=== PATIENT | male | born 1990 | race Asian ===

== ENCOUNTER 2021-07-31 10:39 | Emergency (ER) | payer BC ==
[~2021-07-31] VITALS: Ht 177.8 cm; Wt 101.6 kg
--- NOTE | 2021-07-31 10:51 | NUR ---
dr johnson at bedside for eval.
[2021-07-31] MEDS ORDERED: LORAZEPAM INJ 2 MG/ML VIAL IV ONE (11:00)
--- NOTE | 2021-07-31 11:00 | NUR ---
iv line started blood drawn. 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
[2021-07-31] MEDS ORDERED: LORAZEPAM INJ 2 MG/ML VIAL ONE (11:01)
--- NOTE | 2021-07-31 11:04 | NUR ---
pt ambulatory to er bed 11 c/o chest discomfort, feeling "sick" s/p shooting methampetamine this morning at around 3am. pt states symptoms got worst at aroun 0600 so decided that he go to the urgent care. pt was given aspirin 325 po prior to being ask to go to ED for further eval. pt is aaox4. denies si/hi. gowned and placed on monitor. sinus tach and hypertensive. awaiting md yoanna.
[2021-07-31 11:15] LABS: BASOPHILS % (AUTO) 0.3 % (0.0-2.0); EOSINOPHILS % (AUTO) 0.3 % (0.0-6.0); HEMATOCRIT 51 % (39-51); HEMOGLOBIN 17.1 g/dL (13.5-17.5); LYMPHOCYTES % (AUTO) 11.2 % (20.0-44.0); MEAN CORPUSCULAR HGB CONC 34 g/dl (31.0-36.0); MEAN CORPUSCULAR VOLUME 88 fL (80-96); MONOCYTES # (AUTO) 1.1 K/uL (0.1-1.30); MONOCYTES % (AUTO) 11.6 % (2.0-12.0); NEUTROPHILS # (AUTO) 6.9 K/uL (1.8-8.9); NEUTROPHILS % (AUTO) 76.6 % (43.0-81.0); PLATELET COUNT (AUTO) 248 K/uL (150-450); RED BLOOD CELL COUNT(AUTO) 5.79 MIL/uL (4.5-6.0); WHITE BLOOD COUNT (AUTO) 9.1 K/uL (4.3-11.0)
[2021-07-31 11:22] LABS: CALCIUM, SERUM 9.2 mg/dL (8.5-10.1); CARBON DIOXIDE 25 mmol/L (21-32); CHLORIDE 104 mmol/L (98-107); GLUCOSE 109 mg/dL (74-106); POTASSIUM 3.6 mmol/L (3.5-5.1); SODIUM SERUM 142 mmol/L (136-145); UREA NITROGEN, BLOOD 18 mg/dL (7-18)
[2021-07-31 11:53] VITALS: BP 138/86
--- NOTE | 2021-07-31 11:53 | NUR ---
IV removed. Catheter intact and site benign. Pressure and 4x4 applied to site. No bleeding noted.Patient discharged to home in stable condition. Written and verbal after care instructions given. Patient verbalizes understanding of instruction.
== END 2021-07-31 11:53 | disposition home or self-care (01) ==
LOC: ER 10:46
DX: R07.89 Other chest pain (principal); F15.90 Other stimulant use, unspecified, uncomplicated; I10 Essential (primary) hypertension
CPT/HCPCS: 36415; 71045; 80048; 84484; 85025; 93005 ×3; 96374; 99285; J2060